=== PATIENT | male | born 1980 | race American Indian/Alaskan Native ===

== ENCOUNTER 2021-07-20 11:10 | Emergency (ER) | payer SELFPAY ==
--- NOTE | 2021-07-20 14:26 | Emergency Department Report ---
ED Abdominal Pain HPI - General Chief Complaint: Back Pain/Injury Stated Complaint: BACK PAIN X 5 YEARS Time Seen by Provider: 07/20/21 14:15 Source: patient Mode of arrival: Ambulatory Limitations: No Limitations - History of Present Illness Initial Comments: This is a 40-year-old -[place] male who presents to the emergency room with upper abdominal pain, vomiting, and dark stools for 4 days. Patient reports a history of GERD. Patient states he drinks alcohol daily and a lot of it. He reports episodes of burning chest pain. Patient reports pain is burning and cramping in intensity that is off and on radiating from upper abdomen to chest. Patient states stools are darker than normal. States symptoms are aggravated by eating. Fever, chills, palpitations, urinary changes, or unusual foods. MD Complaint: abdominal pain Onset/Timin -: days(s) Location: epigastric ED Review of Systems ROS: Stated complaint: BACK PAIN X 5 YEARS Other details as noted in HPI Constitutional: denies: chills, fever Respiratory: denies: cough, shortness of breath, wheezing Cardiovascular: chest pain. denies: palpitations Gastrointestinal: abdominal pain. denies: nausea, vomiting, diarrhea, constipation, hematemesis Genitourinary: denies: urgency, dysuria Neurological: denies: headache, weakness, paresthesias Psychiatric: denies: anxiety, depression ED Physical Exam - General Limitations: No Limitations General appearance: alert, in no apparent distress, obese - Head Head exam: Present: atraumatic, normocephalic - Respiratory Respiratory exam: Present: normal lung sounds bilaterally. Absent: respiratory distress - Cardiovascular Cardiovascular Exam: Present: regular rate, normal rhythm. Absent: systolic murmur, diastolic murmur, rubs, gallop - GI/Abdominal GI/Abdominal exam: Present: soft, normal bowel sounds. Absent: distended, tenderness, guarding, rebound, mass Critical care attestation.: If time is entered above; I have spent that time in minutes in the direct care of this critically ill patient, excluding procedure time. ED Disposition Condition: Stable
--- NOTE | 2021-07-20 15:07 | Emergency Department Report ---
ED Back Pain/Injury HPI - General Chief Complaint: Back Pain/Injury Stated Complaint: BACK PAIN X 5 YEARS Time Seen by Provider: 07/20/21 14:15 Source: patient Limitations: No Limitations - History of Present Illness Initial Comments: This is a 40-year-old -German male who presents to the emergency room with low back pain for several days. Patient reports a history of a work injury to lower back in November 2016. He is followed by [facility] orthoped[facility]. Patient states he received the epidural last month which he thinks possibly aggravated back. Patient reports radiating shooting pain to the right lower extremity with bending. States he feel like he have a pinched nerve in his right buttock because pain is so severe. He is currently taking tramadol prescribed by [facility] orthoped[facility]. Denies change in urinary or bowel pattern, recent injury, bruising. MD Complaint: back pain Similar Symptoms Previously: Yes Place: work Radiation: right leg Severity: moderate Severity scale (0 -10): 7 Quality: sharp Consistency: intermittent Improves With: immobilization, sitting upright Worsens With: movement, walking Context: unknown Associated Symptoms: denies other symptoms. denies: difficulty urinating - Related Data Previous Rx's Medication Instructions Recorded Last Taken Type Ibuprofen [Motrin 800 MG tab] 800 mg PO Q8HR PRN #20 tablet 07/20/21 Unknown Rx Prednisone [predniSONE 10 mg 10 mg PO .TAPER 5 Days #1 tab 07/20/21 Unknown Rx (6-Day Pack, 21 Tabs)] ED Review of Systems ROS: Stated complaint: BACK PAIN X 5 YEARS Other details as noted in HPI Constitutional: denies: chills, fever Respiratory: denies: cough, shortness of breath, wheezing Cardiovascular: denies: chest pain, palpitations Gastrointestinal: denies: abdominal pain, nausea, diarrhea Genitourinary: denies: urgency, dysuria Musculoskeletal: back pain Skin: denies: rash, lesions Neurological: denies: headache, weakness, paresthesias Psychiatric: denies: anxiety, depression ED Back Pain Physical Exam - Exam General: Vital signs noted. No distress. Alert and acting appropriately. Back/Abdomen: Yes Perilumbar Tenderness (Right paralumbar, no midline tenderness, no step-off, no saddle paresthesia), Yes Straight Leg Raise Pain (Right leg), No Abdominal Tenderness, No Perithoracic Tenderness, No Sacroiliac Tenderness, No Flank Tenderness Neuro: Yes Normal Sensation, Yes Normal DTR's, Yes Normal Gait, No Motor Weakness ED Medical Decision Making - Medical Decision Making This patient presents with lower back pain most consistent with lumbar radiculopathy with sciatica to right lower extremity. Differential diagnoses includes lumbago versus musculoskeletal spasm / strain versus sciatica. Patient denies trauma or bony tenderness on exam. No signs of acute back pain red flags on history or physical. Presentation not consistent with malignancy, fracture, cauda equina, AAA, renal colic, pyelonephritis. Given the clinical picture and exam, no indication for imaging at this time. This is acute on chronic lumbar radiculopathy and sciatica. Start NSAIDs and muscle relaxers for comfort. Instructed to follow-up with [facility] orthopedics. Patient discharged home stable. Critical care attestation.: If time is entered above; I have spent that time in minutes in the direct care of this critically ill patient, excluding procedure time. ED Disposition Clinical Impression: Back pain with sciatica, Low back pain potentially associated with radiculopathy Disposition: 01 HOME / SELF CARE / HOMELESS Is pt being admited?: No Condition: Stable Instructions: Acute Back Pain, Adult, Sciatica, Octr-td-[id number] Prescriptions: Ibuprofen [Motrin 800 MG tab] 800 mg PO Q8HR PRN #20 tablet PRN Reason: Pain , Severe (7-10) Prednisone [predniSONE 10 mg (6-Day Pack, 21 Tabs)] 10 mg PO .TAPER 5 Days #1 tab Referrals: YEYO MELENDEZ MD [Staff Physician] - 3-5 Days [facility] [Provider Group] - 3-5 Days Forms: Work/School Release Form(ED) Time of Disposition: 15:39
[2021-07-20 16:37] VITALS: BP 135/85
== END 2021-07-20 16:38 | disposition home or self-care (01) ==
LOC: ED 11:10
DX: M54.16 Radiculopathy, lumbar region (principal); M54.30 Sciatica, unspecified side
CPT/HCPCS: 99282